=== PATIENT | male | born 1970 | race Caucasian/White ===

== ENCOUNTER → 2018-11-15 | Outpatient (CLI) | payer OTHER ==
--- NOTE | 2018-11-15 09:58 | REP ---
MRI LEFT KNEE: TECHNIQUE: Axial proton density fat saturation, sagittal proton density T2 STIR, water excitation, coronal proton density, proton density fat saturation. Menisci demonstrate no evidence of a tear. The cruciate and collateral ligaments are intact. There is mild increased signal on T2-weighted in the distal quadriceps tendon which could represent a mild tendon strain. Patellar tendon is intact. There is moderately severe chondromalacia of the patella particularly along the lateral patellar facet. There is a focal 2 mm cartilaginous defect with moderate underlying subchondral cystic changes and marrow edema. Very mild global chondromalacia is seen along the femoral condyles. There is a very small joint effusion. There is no popliteal cyst. Medial and lateral patellar retinacula are intact. IMPRESSION: Menisci are intact. The cruciate and collateral ligaments are intact. There is mild increased signal in the distal quadriceps tendon which may represent a mild tendon strain. Moderately severe chondromalacia lateral patellar facet with a 2 mm chondral defect and moderate underlying subchondral marrow edema and cystic changes in the lateral patellar facet. Electronically Signed by Magan Main MD 11/16/2018 11:52 A
== END ==
LOC: M RAD 06:39
PROVIDERS: ATTEND Physician Assistant
DX: M25.562 Pain in left knee (principal); M22.42 Chondromalacia patellae, left knee